=== PATIENT | female | born 1935 | race Two or more races ===

== ENCOUNTER 2018-08-22 13:25 | Inpatient (IN) | payer MEDICARE, MEDICAID ==
[~2018-08-22] VITALS: Ht 149.9 cm; Wt 32.8 kg
[2018-08-22] VITALS (23 sets, daily range): BP systolic 0–141; BP diastolic 0–80
[~2018-08-22 13:25] MED LIST: SODIUM BICARBONATE 50ML VIAL 100 ML in D5W/SOD CHL 0.45% 1,000 ML IV SCH
[2018-08-22] MEDS ORDERED: SUCCINYLCHOLINE CHLORIDE 20 MG/ML 10ML VIAL IV ONE ×2 (13:28→14:45)
[2018-08-22] MEDS ORDERED: ETOMIDATE (2MG/ML) 20ML VIAL IV ONE ×2 (13:28→14:45)
[2018-08-22] MEDS ORDERED: MIDAZOLAM DRIP 50 mg/50mL 50 ML IV ONE (13:29)
[2018-08-22] MEDS ORDERED: SODIUM CHLORIDE 0.9% 1,000 ML IV ONE ×3 (13:44→18:15)
[2018-08-22] MEDS ORDERED: NOREPINEPHRINE 8 MG/250ML KIT 250 ML IV ONE (13:53)
[2018-08-22] MEDS ORDERED: ACETAMINOPHEN 650 MG RECT SUPP PR ONE ×2 (14:10→14:15)
[2018-08-22 14:20] LABS: Hematocrit 32.1 % (36.0-46.0); Hemoglobin 10.6 g/dL (12.2-16.2); Mean Corpuscular Hemoglobin 29.9 pg (28.0-32.0); Mean Corpuscular Hgb Conc. 33.1 g/dL (32.0-36.0); Mean Corpuscular Volume 90.3 fL (80.0-100.0); Platelet Count (auto) 120 10^3/uL (140-450); Red Blood Cells 3.56 10^6/uL (4.0-5.20); Red Cell Distribution Width 15.2 % (11.8-14.3); White Blood Cell 18.6 10^3/uL (4.4-10.8)
[2018-08-22 14:29] LABS: Band Neutrophils % (manual) 0; Basophils % (manual) 0 (0.0-2.0); Blast Cells 0; Eosinophils % (manual) 0 (0-7); Metamyelocytes % 0; Myelocytes % 0; Promyelocytes % 0; Reactive Lymphocytes 0
[2018-08-22] MEDS ORDERED: MIDAZOLAM DRIP 50 mg/50mL 50 ML IV SCH (14:34)
[2018-08-22 14:35] LABS: INR 1.21 (0.9-1.15); Partial Thromboplastin Time 27.7 sec (23.78-33.04); Prothrombin Time 12.8 sec (9.27-12.13)
[2018-08-22 14:37] LABS: Albumin 1.8 g/dL (3.4-5.0); Calcium 7.1 mg/dL (8.5-10.1)
[2018-08-22 14:39] LABS: Lactic Acid w/Reflex 2.5 mmol/L (0.4-2.0)
[2018-08-22 14:41] LABS: Bilirubin, Total 1.1 mg/dL (0.2-1.0); Total Protein 5.4 g/dL (6.4-8.2)
[2018-08-22 14:45] LABS: Potassium 2.6 mmol/L (3.5-5.1)
[2018-08-22] MEDS: NOREPINEPHRINE 8 MG/250ML KIT 250 ML IV SCH ×2 (14:59→21:36)
[2018-08-22 15:17] LABS: Lymphocytes % (manual) 2 (10.0-50.0); Monocytes % (manual) 2 (0-12)
[2018-08-22 16:02] LABS: Urine Bacteria FEW /hpf (None Seen); Urine Blood Negative /uL (Negative); Urine Hyaline Cast MOD /lpf (0 - 2); Urine Mucus FEW (None Seen); Urine Specific Gravity 1.012 (1.001-1.035); Urine WBC 4 /hpf (0 - 5)
[2018-08-22] MEDS: POTASSIUM CHL 20MEQ/100ML 100 ML IV SCH ×3 (16:49→19:00)
[2018-08-22] MEDS ORDERED: PIPERACILLIN-TAZOB 3.375GM 100 ML IV ONE ×2 (17:30→18:15)
[2018-08-22] MEDS ORDERED: VANCOMYCIN 1GM/250ML 250 ML IV ONE (17:30)
[2018-08-22] MEDS ORDERED: AZITHROMYCIN 500MG/ 250ML 250 ML IV ONE (18:00)
[2018-08-22] MEDS ORDERED: ALBUTEROL SULF 2.5 MG/0.5ML(0.5%) NEB SOLN NEB PRN (18:15)
[2018-08-22] MEDS ORDERED: CLINDAMYCIN 900MG IV 50 ML IV ONE (18:15)
[2018-08-22] MEDS ORDERED: NITROGLYCERIN 0.4 MG SL TAB SL PRN (18:15)
[2018-08-22] MEDS ORDERED: PROMETHAZINE HCL 25 MG/ML 1ML IV PRN (18:15)
[2018-08-22] MEDS ORDERED: PANTOPRAZOLE 40 MG/10 ML VIAL IV ONE (18:15)
[2018-08-22] MEDS ORDERED: VASOPRESSIN 50 UNITS in D5W 5% 247.5 ML IV ONE (18:30)
[2018-08-22 18:45] LABS: Alcohol, Urine < 3.0 mg/dL (0-5); Amphetamine Screen, Urine NEGATIVE (NEGATIVE); Barbiturate Scree,Urine NEGATIVE (NEGATIVE); Benzodiazephine Screen, Urine NEGATIVE (NEGATIVE); Cannabinoid Screen, Urine NEGATIVE (NEGATIVE); Cocaine Screen, Urine NEGATIVE (NEGATIVE); Opiate Scree,Urine NEGATIVE (NEGATIVE); Phencyclidine Screen, Urine NEGATIVE (NEGATIVE)
[2018-08-22] MEDS ORDERED: SODIUM BICARBONATE 50ML VIAL 50 ML in D5W/SOD CHL 0.45% 1,000 ML IV SCH (18:45)
[2018-08-22] MEDS ORDERED: LEVOFLOXACIN 500MG 100 ML IV ONE (18:45)
[2018-08-22 18:52] LABS: CRP High Sensitivity 7.56 mg/dL (< 0.3)
[2018-08-22] MEDS ORDERED: SODIUM BICARBONATE 8.4% INJ 50ML SYRINGE ONE (21:06)
[2018-08-22] MEDS ORDERED: LORazepam 2MG/ML-1ML VIAL IV PRN (22:00)
[2018-08-22] MEDS ORDERED: CLINDAMYCIN 600MG IV 50 ML IV SCH (22:00)
[2018-08-22] MEDS ORDERED: VASOPRESSIN 20 UNIT/ML ONE (22:23)
[2018-08-22] MEDS ORDERED: PHENYLEPHRINE IV 250 ML IV ONE (22:36)
[2018-08-22] MEDS ORDERED: PHENYLEPHRINE INJ 20 MG in SODIUM CHL 0.9% 250 ML IV SCH (23:00)
[2018-08-22] MEDS ORDERED: ALBUMIN 25% 100 ML IV ONE (23:00)
[2018-08-23] VITALS: BP 82/54
[2018-08-23] MEDS ORDERED: ALBUTEROL SULF 2.5 MG/0.5ML(0.5%) NEB SOLN NEB SCH
[2018-08-23] MEDS ORDERED: PIPERACILLIN-TAZOB 3.375GM 100 ML IV SCH
[2018-08-23] MEDS ORDERED: SODIUM BICARBONATE 8.4% INJ 50ML SYRINGE ONE (00:06)
[2018-08-23] MEDS ORDERED: EPINEPHrine HCL 250 ML IV ONE (00:19)
[2018-08-23 00:30] VITALS: BP 124/78
[2018-08-23] MEDS ORDERED: ATROPINE SULF 1 MG/10ml SYR IM ONE (08:33)
[2018-08-23] MEDS ORDERED: EPINEPHrine HCL 1 MG/10 ML SYRG IV ONE (08:34)
[2018-08-23] MEDS ORDERED: SODIUM BICARBONATE 8.4% INJ 50ML SYRINGE IV ONE (09:18)
[2018-08-23] MEDS ORDERED: AZITHROMYCIN 500MG/ 250ML 250 ML IV SCH (10:00)
[2018-08-23] MEDS ORDERED: PANTOPRAZOLE 40 MG/10 ML VIAL IV SCH (10:00)
[2018-08-23] MEDS ORDERED: LEVOFLOXACIN 500MG 100 ML IV SCH (10:00)
[2018-08-23] MEDS ORDERED: ENOXAPARIN SOD 30 MG/0.3 ML SYRINGE SC SCH (10:00)
== END 2018-08-23 04:00 | disposition expired | DRG 871 ==
LOC: EDBD 13:25 → ER 13:25 → TELE 18:21 → ICU WEST 19:25
PROVIDERS: ADMIT Internal Medicine; ATTEND Internal Medicine
PROC: 05HY33Z Insertion of Infusion Device into Upper Vein, Percutaneous Approach (ICD-10-PCS; principal; 2018-08-22)
PROC: 5A1935Z Respiratory Ventilation, Less than 24 Consecutive Hours (ICD-10-PCS; 2018-08-22)
PROC: 0BH17EZ Insertion of Endotracheal Airway into Trachea, Via Natural or Artificial Opening (ICD-10-PCS; 2018-08-22)
PROC: 5A12012 Performance of Cardiac Output, Single, Manual (ICD-10-PCS; 2018-08-23)
DX: A41.9 Sepsis, unspecified organism (principal); G93.41 Metabolic encephalopathy; J69.0 Pneumonitis due to inhalation of food and vomit; J96.90 Respiratory failure, unspecified, unspecified whether with hypoxia or hypercapnia; R65.21 Severe sepsis with septic shock; I62.03 Nontraumatic chronic subdural hemorrhage; N17.9 Acute kidney failure, unspecified; E87.0 Hyperosmolality and hypernatremia; D68.9 Coagulation defect, unspecified; I46.9 Cardiac arrest, cause unspecified; E86.0 Dehydration; I10 Essential (primary) hypertension; I67.2 Cerebral atherosclerosis; D69.6 Thrombocytopenia, unspecified; R73.9 Hyperglycemia, unspecified; M19.90 Unspecified osteoarthritis, unspecified site; Z83.3 Family history of diabetes mellitus; Z88.8 Allergy status to other drugs, medicaments and biological substances; Z87.440 Personal history of urinary (tract) infections
CPT/HCPCS: 31500; 36415; 36556; 36600; 51702; 70450; 71045; 71250; 74176; 80053; 80307; 81001; 82150; 82550; 82805; 82962; 83605; 83690; 83880; 84443; 84484; 85007; 85027; 85045; 85610; 85652; 85730; 86141; 87040; 87070; 87077; 87086; 87186; 87205; 93005; 94002; 96361; 96365; 96366; 96375; 96376; 99291; C9113; G0378; J0171; J0330; J1956; J2250; J2543; J3480; J3490; J7060